=== PATIENT | male | born 1985 | race Caucasian/White ===

== ENCOUNTER → 2016-12-02 | Day surgery (SDC) | payer BC ==
[~2016-12-02] MED LIST: BUPIVACAINE/EPINEPHRINE 0.25% 50 ML VIAL ONE; KETOROLAC TROMETHAMINE 30 MG/ML (IVP) VIAL IV PUSH ONE; LACTATED RINGER'S 1000 ML INJ 1,000 ML ONE; MEPERIDINE HCL 50 MG/ML VIAL ONE; MIDAZOLAM HCL 2 MG/2 ML VIAL ONE; ONDANSETRON HCL 4 MG/2 ML VIAL IV PUSH ONE; PROPOFOL 200 MG/20 ML AMP IV ONE; ceFAZolin 2 GM PREMIX 50 ML ONE
--- NOTE | 2016-12-02 15:20 | TN ---
cc: SRI PETERSEN M.D. DATE OF SURGERY: 12/02/2016 PREOPERATIVE DIAGNOSIS 1. Bilateral inguinal hernia. 2. Umbilical hernia. POSTOPERATIVE DIAGNOSES 1. Bilateral inguinal hernia. 2. Umbilical hernia. PROCEDURE 1. Laparoscopic repair bilateral inguinal hernia with mesh. 2. Open repair umbilical hernia. SURGEON Dr. Sri Petersen CORPORATE COMMUNICATIONS INTERN Senia Kaye, NURY ANESTHESIA General. INDICATIONS This is a very pleasant 31-year-old gentleman who works in the [employer] department at [employer] and does a lot of heavy lifting at work. This exacerbates the presence of his right inguinal hernia which has been present for over one year. Physical examination demonstrates an incidentally discovered small umbilical hernia defect and nearly symmetric asymptomatic left inguinal hernia. INTRAOPERATIVE FINDINGS Bilateral indirect inguinal hernias with bilateral spermatic cord lipoma, right side indirect inguinal hernia sac. Small less than 2 cm umbilical hernia defect. ESTIMATED BLOOD LOSS Minimal. The surgical procedure was assisted by my nurse practitioner. My CLOTH FOLDER HAND's presence was necessary throughout the case for assisting in visualization and exposure of the umbilical and bilateral inguinal hernias. My CLOTH FOLDER HAND was assisting me throughout the duration of the procedure. The skill set of a nurse practitioner was medically necessary to complete the procedure. During the surgical case, the surgical specialist was working at the back table providing appropriate instrumentation to the nurse practitioner and myself, and the nurse practitioner was directly assisting me. DESCRIPTION OF PROCEDURE IN DETAIL The patient was identified as Ray Camacho, taken to the operating room and placed in supine position. Sequential compression devices were placed on bilateral lower extremities. Following the induction of adequate general anesthesia the patient's abdomen was prepped and draped in the usual sterile fashion with Betadine. A timeout procedure was performed. Following completion of the timeout procedure to everyone's satisfaction within the room, 1% lidocaine with epinephrine was infiltrated at each incision site. The infraumbilical incision was carried out with a scalpel and the umbilicus was released from the underlying herniated preperitoneal fatty tissue. An approximate 1 cm umbilical hernia defect was identified and the preperitoneal fatty tissue was easily reduced. The anterior rectus fascia on the left side was then identified and incised at its medial margin and a preperitoneal plane posterior to the rectus muscle directed towards the pubic symphysis was then developed with the surgeon's finger. A preperitoneal dissecting balloon was placed in the preperitoneal space with the patient in the slight Trendelenburg position and inflated to a total of approximately 40 pumps. This allowed for identification of Saad's ligaments bilaterally and bilateral inferior epigastric vessels. The balloon was desufflated and removed and a structural balloon trocar placed in the preperitoneal space, its balloon inflated to CO2 insufflation to a level of 11 mmHg ensued. Two infraumbilical midline 5 mm trocars were then placed in the preperitoneal space under direct laparoscopic view after incision of the skin with a scalpel. Attention was turned first to the left side. Blunt dissection allowed for identification of the spermatic cord. It was isolated from surrounding tissues laterally and posteriorly using the blunt graspers. Posterolaterally there was an obvious spermatic cord lipoma which was reduced from the inguinal canal using the blunt graspers. It was withdrawn in its entirety. The anteromedial surface was examined. Adherent peritoneum was reduced to the base of the spermatic cord using blunt graspers. There was no evidence of direct or femoral hernia. A 4 x 6 inch piece of Atrium ProLite mesh was cut with an anterolateral slit, placed around the spermatic cord and tacked into position with the ProTack device. Tacks were placed to approximate the anterolateral slit along the anterior border of Saad's ligament and the superior border of the mesh. A 2 x 6 inch piece of mesh was then placed across the anterolateral slit and held in position with the ProTack device. Care was taken to avoid tack placement inferolaterally to avoid cutaneous nerve injury. Photographs were taken of the completed repair. Attention was then turned to the right side. A similar blunt dissection ensued, allowing for identification of anatomical structures including Saad's ligament, the inferior epigastric vessels and the spermatic cord. Dissection lateral and posterior to the spermatic cord was performed and a large spermatic cord lipoma was reduced from the inguinal canal into the preperitoneal space using the blunt graspers. The anteromedial surface was examined. There was an obvious indirect inguinal hernia sac which was reduced from the internal inguinal ring to the base of the spermatic cord using the blunt graspers. A 4 x 6 inch piece of the Atrium ProLite mesh was then cut with an anterolateral slit, placed around the spermatic cord and tacked into position with the ProTack device. A 2 x 6 inch piece of mesh was placed across the anterolateral slit and held in position with the ProTack device. Tacks were placed to approximate the mesh to the anterior Saad's ligament to approximate the anterolateral slit and along the anterior border of the mesh. Care was taken to avoid tack placement inferolaterally to avoid cutaneous nerve injury. Photographs were taken of the completed repair. The remaining local anesthetic was placed in the preperitoneal space and trocars removed under direct visualization. There was no evidence of bleeding from the trocar sites. The infraumbilical port was then removed and the anterior rectus fascial incision was closed with running 2-0 Vicryl suture. The umbilical hernia defect was approximated with three interrupted inverted 0 Prolene sutures. The base of the umbilicus was sutured down to recreate the inward projection of the umbilicus using interrupted 2-0 Vicryl sutures. 2-0 Vicryl was placed in the deep dermis and the skin was approximated with running 4-0 Monocryl subcuticular suture. 4-0 Monocryl was placed in the 5 mm trocar sites as well. Dressings were applied with Mastisol and half-inch brown Steri-Strips. Gauze and Tegaderm were placed over the umbilicus. The patient tolerated the procedure without apparent complication. Sponge, needle and instrument counts were correct at the end of the case. MD BRANDIE Solorzano/LAVINIA /2:26 PM /2:47 PM
== END | disposition home or self-care (01) ==
LOC: ESDC 11:32
PROVIDERS: ATTEND Surgery Trauma Surgery
DX: K40.20 Bilateral inguinal hernia, without obstruction or gangrene, not specified as recurrent (principal); K42.9 Umbilical hernia without obstruction or gangrene
CPT/HCPCS: 00750; 00840; 49585; 49650; C1727; C1781; J0690; J1885; J2175; J2250; J2405; J3010; J7120